=== PATIENT | female | born 1995 | race Two or more races ===

== ENCOUNTER 2022-05-04 17:16 | Emergency (ER) | payer MEDICAID, OTHER ==
[~2022-05-04] VITALS: Ht 167.6 cm; Wt 131.8 kg
[2022-05-04 17:26] VITALS: BP 166/97
[2022-05-04 18:39] LABS: Urine Bacteria FEW /hpf (None Seen); Urine Blood 3+ /uL (Negative); Urine Mucus FEW (None Seen); Urine Specific Gravity 1.033 (1.001-1.035); Urine WBC 1 /hpf (0 - 5)
== END 2022-05-04 21:08 | disposition left against medical advice (07) ==
LOC: ER 17:16
DX: R10.2 Pelvic and perineal pain (principal); Z32.02 Encounter for pregnancy test, result negative; Z90.49 Acquired absence of other specified parts of digestive tract
CPT/HCPCS: 81001; 81025